=== PATIENT | female | born 1955 | race Hispanic/Latino ===

== ENCOUNTER 2018-09-02 09:56 | Outpatient (CLI) | payer OTHER ==
--- NOTE | 2018-09-02 13:42 | Mammography Report ---
Bilateral mammogram: Compared to 06/25/16 and 01/08/15. CAD study utilized. Findings: Predominance adipose tissue bilaterally. No mass or microcalcification. Benign densities. Normal axilla. Impression: Benign findings. Annual followup recommended. BI-RADS CATEGORY: 2 = Benign ACR BI-RADS MAMMOGRAPHIC CODES: 0 = Needs additional imaging evaluation; 1 = Negative; 2 = Benign; 3 = Probably benign; 4 = Suspicious; 5 = Malignant; 6 = Known biopsy-proven malignancy COMMENT: 1. Dense breast tissue, i.e., adenosis, fibrocystic changes, etc., may obscure an underlying neoplasm. 2. Approximately 10% of cancers are not detected with mammography. 3. A negative mammography report should not delay biopsy if a clinically suspicious mass is present. COMMENT: Patient follow-up letters are generated in [employer].
== END 2018-09-02 09:57 | disposition home or self-care (01) ==
LOC: MAMMO 09:56 → EDSTATUS 10:00
DX: Z12.31 Encounter for screening mammogram for malignant neoplasm of breast (principal)
CPT/HCPCS: 77067